=== PATIENT | male | born 1970 | race African-American/Black ===

== ENCOUNTER 2016-08-10 00:30 | Emergency (ER) | payer OTHER ==
[2016-08-10 02:07] VITALS: BP 140/95
== END 2016-08-10 02:07 | disposition other institution (70) ==
LOC: ED 00:30
DX: I10 Essential (primary) hypertension (principal)

== ENCOUNTER 2016-08-10 00:30 | Emergency (ER) | payer OTHER | END 2016-08-10 02:07 | disposition other institution (70) | LOC: ED 00:30 | DX: Z02.89 Encounter for other administrative examinations (principal) ==